=== PATIENT | male | born 1995 | race Caucasian/White ===

== ENCOUNTER 2023-03-02 14:56 | Outpatient (OUT) | payer BC, SELFPAY ==
--- NOTE | 2023-03-02 | XR_ITS ---
The [address] [address] Patient Name: GINNY MARY MRN: [id number] date: 1995 Sex: M Assigned Patient Location: [facility] Current Patient Location: [facility] Accession/Order Number: [id number] Exam Date: 03/02/2023 17:08 Report Date: 03/02/2023 18:06 At the request of: SERENA RAINES Procedure: XR chest 2V EXAM: XR chest 2V HISTORY: Bronchitis. COMPARISON: None. TECHNIQUE: PA and lateral views of the chest performed. FINDINGS: The trachea is midline. The heart size is within normal limits. The cardiac mediastinal silhouette and hilar shadows are within normal limits. The lung volumes are normal. The lung llanos are clear. There is no pneumothorax or osseous abnormality. XR/XR chest 2V IMPRESSION: Unremarkable PA and lateral views of the chest. Electronically authenticated by: PAULETTE VILLAFANA Date: 03/02/2023 18:06
== END 2023-03-02 14:57 | disposition home or self-care (01) ==
LOC: RAD 15:04
PROVIDERS: PCP Family Medicine; Visit Provider Family Medicine
DX: J40 Bronchitis, not specified as acute or chronic (principal)
CPT/HCPCS: 71046